=== PATIENT | male | born 1975 | race Caucasian/White ===

== ENCOUNTER 2023-08-27 14:13 | Day surgery (SDC) | payer OTHER, SELFPAY ==
[2023-08-26 13:48] VITALS: BMI 31.1
--- NOTE | 2023-08-26 15:26 | PM.PREOP ---
Pre-operative Note Interval Note History & Physical reviewed/Exam performed by Physician: Yes Changes to H&P: No
[2023-08-27] VITALS (8 sets, daily range): BP systolic 125–152; BP diastolic 77–104; PULSE 69–81; RESP 10–16; TEMP 36.4–36.7; O2SAT 93–98; BMI 31.1
--- NOTE | 2023-08-27 | PATH_ITS ---
[facility] Accession Number: [id number] No. of containers..01 Tissue . 01 Material submitted: . hemorrhoids - HEMORRHOIDS . 01 Diagnosis: HEMORRHOIDS, HEMORRHOIDECTOMY: Benign hemorrhoid tissue. MRV 09/01/2023 1321 Local . 01 Electronically signed: . Silva Stanley MD, Pathologist NPI- [id number] . 01 Gross description: . HEMORRHOIDS: Received in formalin are 2 fragments of mc soft tissue measuring 4.5 x 2.5 x 2.0 cm in aggregate. Tissue is inked. Specimen is sectioned and submitted in technical account representative sections in 1 cassette. /RACHEL 08/28/2023 1918 Local . 01 Pathologist provided ICD-10: K64.9 . 01 CPT . 012429 Specimen Comment: A courtesy copy of this report has been sent to [phone] Performed at: 01 [facility] [address] [place] [address], [place], [place] [id number] MD Ben Ledesma MD Phone: [phone]
[2023-08-27] MEDS: LACTATED RINGERS 1,000 ML 21 ML IV (14:54)
[2023-08-27] MEDS: ACETAMINOPHEN 325 MG TABLET 975 MG PO (14:58)
--- NOTE | 2023-08-27 15:29 | SUR.OPER ---
Lithotomy on padded OR bed, head on pillow, arms secured on padded arm boards at <90 degrees abduction. Legs secured in padded yellow fins stirrups.
[2023-08-27] MEDS: BUPIVACAINE LIPOSOME 266 MG/20 ML VIAL INJ (15:30)
[2023-08-27] MEDS: BUPIVACAINE 0.25% (PF) VIAL 30 ML INJ (15:31)
[2023-08-27] MEDS: DIBUCAINE 1% OINT 28 GM 1 APPLIC TOP (15:32)
--- NOTE | 2023-08-27 16:08 | P.OP_ITS ---
Operative Date/Time/Diagnoses Date of procedure: 08/27/23 Time of procedure: 16:08 Pre-op diagnosis: Internal hemorrhoids Post-op diagnosis: same Procedure & Clinicians Procedure: Excisional hemorrhoidectomy Same procedure as scheduled: Yes Indications: Fariha is a 48 year man with symptomatic grade 3/4 internal hemorrhoids here for excisional hemorrhoidectomy Surgeon: Marvin Benavides Survey Project Manager: Ludwin Foley Click Yes if Unassisted: Yes Anesthesia Type: General Operative Notes Findings: Grade 3-4 internal hemorrhoids Specimen(s): other (hemorrhoids) Estimated Blood Loss (mL): 50 Procedure in detail: The patient was brought to the operating room placed supine on the table. Bilateral lower extremity compression devices were applied. General anesthesia was induced and they were intubated with an endotracheal tube. They were then placed into prone position and appropriately padded. They were then prepped and draped in usual sterile fashion. Time-out was performed. Rectal block was performed by injecting 20 mL of Exparel and 30 mL of bupivacaine into the inte rsphincteric groove. An internal examination of the anal canal was made. There were proximally 7 grade 3-4 hemorrhoids. We removed the 2 largest columns at 12 and 3 o'clock but could not remove further tissue for concern stenosis. Beginning with the left lateral pedicle it was grasped elevated and excised with electrocautery off the internal sphincter. The mucosal defect was then closed with a running 3-0 Vicyrl suture. Hemostasis was checked. The procedure was then repeated for the 12 o'clock pedicle. The specimens were passed off the field. Wound was irrigated with saline. Gelfoam coated in Dibucaine ointment 1% was then placed into the anal canal. Sponge and instrument counts were correct at the end of the procedure. They emerged from anesthesia were extubated and transferred to the postoperative care unit in stable condition. Complications: none Post-operative Disposition: same day surgery Plan for aftercare: Further hemorrhoidectomy will be necessary in staged fashion
[2023-08-27] MEDS: OXYCODONE IR 5 MG TABLET PO (16:27)
== END 2023-08-27 17:07 | disposition home or self-care (01) ==
PROVIDERS: PCP Internal Medicine; Referring Provider Surgery; Visit Provider Surgery
PROC: (CPT 46260; principal; 2023-08-27 15:15)
DX: K64.2 Third degree hemorrhoids (principal)
CPT/HCPCS: 46260; C9290; J1100; J1170; J2405; J2704; J3010

== ENCOUNTER 2024-01-09 11:32 | Day surgery (SDC) | payer OTHER, SELFPAY ==
[2024-01-09] MEDS: FLEETS ENEMA 1 EACH PR (11:46)
[2024-01-09 11:55] VITALS: BP 166/93; PULSE 73; RESP 20; TEMP 36.6; O2SAT 98
[2024-01-09] MEDS: LACTATED RINGERS 1,000 ML 42 ML IV (12:07)
--- NOTE | 2024-01-09 13:14 | P.HP_ITS ---
History of Present Illness History of Present Illness Date Patient Seen: 01/09/24 Time Patient Seen: 13:15 Chief complaint: SDC Narrative: 48-year-old man here for hemorrhoidal banding. No interval change in health since last seen November 2023. [facility] Medical History (Updated 08/23/23 @ 12:18 by Marvin Benavides MD) Pilonidal cyst Surgical History (Updated 08/26/23 @ 13:52 by Alma Balderrama RN) Hx of colonoscopy (2022) Hx of nasal septoplasty Family History Grandfather Stroke Aunt Breast cancer Social History marital status: number of children: 2 household members: spouse and children lives independently: Yes occupational status: employed Smoking Status: Never smoker alcohol intake: current substance use type: does not use Meds Home Medications and Allergies Home Medications Medication Instructions Recorded Confirmed Type fexofenadine See Protocol PO DAILY PRN Allergic 08/21/23 01/09/24 History Symptoms lisdexamfetamine 70 mg capsule 70 mg PO DAILY 08/21/23 01/09/24 History (Vyvanse) acetaminophen 325 mg capsule 650 mg (2 x 325 mg) PO QID PRN 08/27/23 01/09/24 Rx (Tylenol) pain #60 caps allopurinol 300 mg tablet 300 mg PO DAILY 08/27/23 01/09/24 History docusate sodium 100 mg capsule 100 mg PO BID #30 caps 08/27/23 11/27/23 Rx (Colace) ibuprofen 200 mg tablet 400 mg (2 x 200 mg) PO Q6H #60 tabs 08/27/23 01/09/24 Rx polyethylene glycol 3350 17 17 g PO DAILY #510 grams 08/27/23 11/27/23 Rx gram/dose oral powder (Miralax) gabapentin 300 mg capsule 300 mg PO TID 01/08/24 01/09/24 History Allergies Allergy/AdvReac Type Severity Reaction Status Date / Time No Known Drug Allergies Allergy Verified 01/09/24 11:47 Exam Vital Signs (past 8 hours): - 01/09/24 11:55 Temperature 97.9 F Pulse Rate 73 Respiratory Rate 20 Blood Pressure 166/93 H Pulse Oximetry 98 Oxygen Delivery Method Room Air Oxygen Delivery Method Room Air Narrative Exam Narrative: General adult man alert oriented no acute distress Chest nonlabored respiration Extremities warm well perfused Assessment & Plan Assessment and plan (1) Internal hemorrhoids: Status: Acute Assessment & Plan narrative: 48-year-old man with internal hemorrhoids here for hemorrhoidal banding. Overview of the procedure including risks benefits and alternatives discussed. He provides consent to proceed Time-Based Coding :: [TOTAL MINUTES] spent with patient and on the chart (including review of chart, obtaining history, exam, reviewing outside data, placing orders, documenting exam and treatment plan, and counseling patient) on [DATE].
--- NOTE | 2024-01-09 14:01 | PM.OP.1 ---
Operative Date/Time/Diagnoses Date of procedure: 01/09/24 Time of procedure: 14:01 Pre-op diagnosis: Internal hemorrhoids Post-op diagnosis: same Procedure & Clinicians Procedure: Hemorrhoidal banding Same procedure as scheduled: Yes Indications: Symptomatic internal hemorrhoid Surgeon: Marvin Benavides Anesthesia Type: General Operative Notes Findings: Grade 2 internal hemorrhoids left lateral, right anterior and posterior Specimen(s): none sent Estimated Blood Loss (mL): 0 Procedure in detail: Patient was brought to the endoscopy room placed in the left lateral decubitus position. Anesthesia was induced. The anoscope was inserted into the rectum following a time-out. There were grade 2 internal hemorrhoids from the right anterior, right posterior and left lateral pedicles. Each pedicle was grasped with the suction and then doubly ligated at its base. He tolerated the procedure well. Complications: none Post-operative Condition: stable Disposition: same day surgery
[2024-01-09 14:06] VITALS: BP 149/82; BP 158/76; PULSE 65; PULSE 69; RESP 10; RESP 22; TEMP 36.9; O2SAT 94; O2SAT 95
--- NOTE | 2024-01-09 14:12 | SUR.PHASEI ---
Verified verbal order for Torodol IV order from Jennifer URRUTIA for headache/pain PRN.
[2024-01-09 14:13] VITALS: BP 142/92; PULSE 69; RESP 12; TEMP 36.3; O2SAT 94
[2024-01-09 14:19] VITALS: BP 132/92; PULSE 68; RESP 16; O2SAT 95
[2024-01-09 14:35] VITALS: BP 142/78; PULSE 60; RESP 12; TEMP 36.2; O2SAT 98
== END 2024-01-09 14:40 | disposition home or self-care (01) ==
PROVIDERS: PCP Internal Medicine; Referring Provider Surgery; Visit Provider Surgery
PROC: 0DJD8ZZ Inspection of Lower Intestinal Tract, Via Natural or Artificial Opening Endoscopic (ICD-10-PCS; CPT 45378; principal; 2024-01-09 12:30)
DX: K64.1 Second degree hemorrhoids (principal)
CPT/HCPCS: 46221; J2704